=== PATIENT | female | born 2000 | race Caucasian/White ===

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

== ENCOUNTER 2021-08-25 22:31 | Emergency (ER) | payer OTHER ==
[2021-08-25 22:35] VITALS: PULSE 85; TEMP 98.4
[2021-08-25] MEDS ORDERED: MORPHINE SULFATE 4 MG/ML SYRINGE IV STA (23:33)
[2021-08-25] MEDS ORDERED: SODIUM CHLORIDE 0.9% 1,000 ML IV STA (23:33)
[2021-08-25] MEDS ORDERED: ONDANSETRON 4 MG/2 ML VIAL IVP STA (23:33)
--- NOTE | 2021-08-25 23:33 | ED ---
Abdominal Pain HPI - General Chief Complaint: Abdominal Pain Stated Complaint: Abd Pain Time Seen by Provider: 08/25/21 23:26 Source: patient Mode of arrival: ambulatory Limitations: no limitations - History of Present Illness Initial Comments: This is a pleasant 21-year-old female with history of asthma. She presents to emergency department today complaining of pelvic pain which is quite severe. She states she had a little pain last Thursday which seemed to resolve. However today the pain returned. She states that pain is exacerbated by palpation, movement, position, his physical lost her pelvis, mostly in the central area. Pain is 10 out of 10 in intensity. She denies any vaginal discharge. No hematuria. States it does seem to radiate to the back. No headache, no fever or chills, no changes in vision or hearing, no sore throat or difficulty with speech, no neck pain, no chest pain or shortness of breath, no abdominal pain, no nausea or vomiting, no changes in urination or bowel movements, no numbness or tingling, no extremity pain, no skin rashes or lesions. - Related Data Previous Rx's Medication Instructions Recorded ARIPiprazole [Abilify] 2 mg PO DAILY 30 Days #30 tab 10/19/18 Albuterol Nebulized [Ventolin 2.5 mg INHALATION RT-QID PRN nebu 10/19/18 Nebulized] Fluticasone Nasal [place] [Flonase 2 spray EA NOSTRIL DAILY spr 10/19/18 Nasal [place]] Loratadine [Claritin] 10 mg PO DAILY tab 10/19/18 Pramipexole [Mirapex] 0.5 mg PO HS 30 Days #30 tab 10/19/18 Sertraline [Zoloft] 37.5 mg PO 2100 30 Days #45 tab 10/19/18 cloNIDine HCL [Catapres] 0.1 mg PO BID 30 Days #60 tab 10/19/18 lamoTRIgine [LaMICtal] 25 mg PO 2100 30 Days #30 tab 10/19/18 Cephalexin [Keflex] 500 mg PO BID 7 Days #14 cap 03/04/19 Cephalexin [Keflex] 500 mg PO BID 7 Days #14 cap 03/04/19 Acetaminophen [Tylenol] 500 mg PO Q4-6H PRN #24 tab 08/26/21 Naproxen [Naprosyn] 500 mg PO Q12HR #24 tab 08/26/21 Allergies Allergy/AdvReac Type Severity Reaction Status Date / Time Latex, Natural Rubber Allergy Itching Verified 08/25/21 22:35 niacin Allergy Itching Verified 08/25/21 22:35 Review of Systems ROS Statement: Those systems with pertinent positive or pertinent negative responses have been documented in the HPI. ROS Other: All systems not noted in ROS Statement are negative. Past Medical History Past Medical History: Asthma Additional Past Medical History / Comment(s): allergic rhinitis History of Any Multi-Drug Resistant Organisms: None Reported Past Surgical History: Orthopedic Surgery Additional Past Surgical History / Comment(s): surgery to right leg Past Anesthesia/Blood Transfusion Reactions: No Reported Reaction Past Psychological History: Anxiety, Bipolar, Depression, PTSD Smoking Status: Never smoker Past Alcohol Use History: None Reported Past Drug Use History: Marijuana - Past Family History Father Additional Family Medical History / Comment(s): high blood pressure, DM, bipolar disorder Mother Additional Family Medical History / Comment(s): asthma General Exam - General Exam Comments Initial Comments: Healthy-appearing 21-year-old female in significant distress due to pelvic pain. Limitations: no limitations General appearance: alert, in distress Head exam: Present: atraumatic, normocephalic, normal inspection Eye exam: Present: normal appearance, PERRL, EOMI. Absent: scleral icterus, conjunctival injection, periorbital swelling ENT exam: Present: normal exam, mucous membranes moist Neck exam: Present: normal inspection. Absent: tenderness, meningismus, lymphadenopathy Respiratory exam: Present: normal lung sounds bilaterally. Absent: respiratory distress, wheezes, rales, rhonchi, stridor Cardiovascular Exam: Present: regular rate, normal rhythm, normal heart sounds. Absent: systolic murmur, diastolic murmur, rubs, gallop, clicks GI/Abdominal exam: Present: soft, tenderness, normal bowel sounds, other (Significant tenderness is suprapubic and bilateral pelvic area.). Absent: distended, guarding, rebound, rigid Extremities exam: Present: normal inspection, full ROM, normal capillary refill. Absent: tenderness, pedal edema, joint swelling, calf tenderness Back exam: Present: normal inspection Neurological exam: Present: alert, oriented X3, CN II-XII intact Psychiatric exam: Present: normal affect, normal mood Skin exam: Present: warm, dry, intact, normal color. Absent: rash Course Vital Signs 08/25/21 22:32 Temperature 98.4 F Pulse Rate 85 Respiratory 16 Rate Blood Pressure 109/78 O2 Sat by Pulse 99 Oximetry - Reevaluation(s) Reevaluation #1: 08/26/21 01:45 Medical record is reviewed Symptoms are improved here in the emergency department Patient is informed of results and questions answered Patient in no distress Patient pain is improved drastically. Medical Decision Making - Medical Decision Making Given the patient's level of discomfort, ovarian torsion must be considered in the differential. Certainly ovarian cyst or pelvic inflammatory disease is also within the differential. However patient does not appear to be ill or toxic. Vicodin be infectious.. And no definitive flank pain. Less likely to be urinogenital. Does not fit the clinical picture of appendicitis. Ultrasound shows bilateral ovarian cyst. I did discuss all findings with the patient. All questions answered. I did suggest a pelvic examination, however, patient states that she is going to defer this test that she is not concerned about an STD nor does she have any vaginal discharge. Patient does have an upcoming appointment with her community music therapist at [facility]. Return and follow-up as discussed in detail. Patient voiced understanding. Note that this patient refused the pelvic examination. I did advise the pelvic exam and stated there could be other causes for her pain that we could not diagnose without a. Patient states she has an appointment appointment with a community music therapist. Patient deferring the pelvic exam. Patient is improving her own medical decisions. We did discuss risks versus benefits. - Lab Data Result diagrams: 08/26/21 00:05 08/26/21 00:05 Lab Results 08/26/21 08/26/21 08/26/21 Range/Units 00:05 00:05 00:05 WBC 6.9 (3.8-10.6) k/uL RBC 4.35 (3.80-5.40) m/uL Hgb 14.1 (11.4-16.0) gm/dL Hct 42.5 (34.0-46.0) % MCV 97.8 (80.0-100.0) fL MCH 32.4 (25.0-35.0) pg MCHC 33.1 (31.0-37.0) g/dL RDW 12.3 (11.5-15.5) % Plt Count 223 (150-450) k/uL MPV 7.8 Neutrophils % 87 % Lymphocytes % 5 % Monocytes % 4 % Eosinophils % 4 % Basophils % 0 % Neutrophils # 6.0 (1.3-7.7) k/uL Lymphocytes # 0.4 L (1.0-4.8) k/uL Monocytes # 0.2 (0-1.0) k/uL Eosinophils # 0.3 (0-0.7) k/uL Basophils # 0.0 (0-0.2) k/uL Sodium 137 (137-145) mmol/L Potassium 3.7 (3.5-5.1) mmol/L Chloride 106 (98-107) mmol/L Carbon Dioxide 23 (22-30) mmol/L Anion Gap 8 mmol/L BUN 13 (7-17) mg/dL Creatinine 0.74 (0.52-1.04) mg/dL Est GFR (CKD-EPI)AfAm >90 (>60 ml/min/1.73 sqM) Est GFR (CKD-EPI)NonAf >90 (>60 ml/min/1.73 sqM) Glucose 98 (74-99) mg/dL Calcium 9.9 (8.4-10.2) mg/dL Total Bilirubin 1.1 (0.2-1.3) mg/dL AST 22 (14-36) U/L ALT 14 (4-34) U/L Alkaline Phosphatase 28 L (38-126) U/L Total Protein 8.2 (6.3-8.2) g/dL Albumin 4.7 (3.5-5.0) g/dL Urine Color Yellow Urine Appearance Clear (Clear) Urine pH 8.5 H (5.0-8.0) Ur Specific [place] 1.025 (1.001-1.035) Urine Protein 1+ H (Negative) Urine Glucose (UA) Negative (Negative) Urine Ketones Negative (Negative) Urine Blood Negative (Negative) Urine Nitrite Negative (Negative) Urine Bilirubin Negative (Negative) Urine Urobilinogen 3.0 (<2.0) mg/dL Ur Leukocyte Esterase Trace H (Negative) Urine RBC 1 (0-5) /hpf Urine WBC 3 (0-5) /hpf Ur Squamous Epith Cells 2 (0-4) /hpf Urine Mucus Rare H (None) /hpf Urine HCG, Qual (Not Detectd) 08/26/21 Range/Units 00:05 WBC (3.8-10.6) k/uL RBC (3.80-5.40) m/uL Hgb (11.4-16.0) gm/dL Hct (34.0-46.0) % MCV (80.0-100.0) fL MCH (25.0-35.0) pg MCHC (31.0-37.0) g/dL RDW (11.5-15.5) % Plt Count (150-450) k/uL MPV Neutrophils % % Lymphocytes % % Monocytes % % Eosinophils % % Basophils % % Neutrophils # (1.3-7.7) k/uL Lymphocytes # (1.0-4.8) k/uL Monocytes # (0-1.0) k/uL Eosinophils # (0-0.7) k/uL Basophils # (0-0.2) k/uL Sodium (137-145) mmol/L Potassium (3.5-5.1) mmol/L Chloride (98-107) mmol/L Carbon Dioxide (22-30) mmol/L Anion Gap mmol/L BUN (7-17) mg/dL Creatinine (0.52-1.04) mg/dL Est GFR (CKD-EPI)AfAm (>60 ml/min/1.73 sqM) Est GFR (CKD-EPI)NonAf (>60 ml/min/1.73 sqM) Glucose (74-99) mg/dL Calcium (8.4-10.2) mg/dL Total Bilirubin (0.2-1.3) mg/dL AST (14-36) U/L ALT (4-34) U/L Alkaline Phosphatase (38-126) U/L Total Protein (6.3-8.2) g/dL Albumin (3.5-5.0) g/dL Urine Color Urine Appearance (Clear) Urine pH (5.0-8.0) Ur Specific [place] (1.001-1.035) Urine Protein (Negative) Urine Glucose (UA) (Negative) Urine Ketones (Negative) Urine Blood (Negative) Urine Nitrite (Negative) Urine Bilirubin (Negative) Urine Urobilinogen (<2.0) mg/dL Ur Leukocyte Esterase (Negative) Urine RBC (0-5) /hpf Urine WBC (0-5) /hpf Ur Squamous Epith Cells (0-4) /hpf Urine Mucus (None) /hpf Urine HCG, Qual Not Detected (Not Detectd) Disposition Clinical Impression: Ovarian cyst Disposition: HOME SELF-CARE Condition: Good Additional Instructions: Follow-up with your regular physician as directed. Return to the ER immediately if any symptoms worsen, new symptoms arise, or any other problems develop. Follow-up with your own physician or the provided physician as discussed. Make an appointment with a community music therapist as well. Prescriptions: Naproxen [Naprosyn] 500 mg PO Q12HR #24 tab Acetaminophen [Tylenol] 500 mg PO Q4-6H PRN #24 tab PRN Reason: Pain Is patient prescribed a controlled substance at d/c from ED?: No Referrals: Dagoberto Bills MD [STAFF PHYSICIAN] - 1-2 days Time of Disposition: 02:08
[2021-08-26 00:14] LABS: Basophils % (A) 0 %; Eosinophils # (A) 0.3 k/uL (0-0.7); Eosinophils % (A) 4 %; HCT 42.5 % (34.0-46.0); HGB 14.1 gm/dL (11.4-16.0); Lymphocytes # (A) 0.4 k/uL (1.0-4.8); Lymphocytes % (A) 5 %; MCH 32.4 pg (25.0-35.0); MCHC 33.1 g/dL (31.0-37.0); MCV 97.8 fL (80.0-100.0); Mean Platelet Volume 7.8; Monocytes # (A) 0.2 k/uL (0-1.0); Monocytes % (A) 4 %; Neutrophils % (A) 87 %; Platelet Count 223 k/uL (150-450); RBC 4.35 m/uL (3.80-5.40); RDW 12.3 % (11.5-15.5); WBC 6.9 k/uL (3.8-10.6)
[2021-08-26 00:17] LABS: Appearance,Urine Clear (Clear); Bilirubin,Urine Negative (Negative); Blood,Urine Negative (Negative); Color,Urine Yellow; Glucose,Urine (UA) Negative (Negative); Ketones,Urine Negative (Negative); Leukocyte Esterase,Urine Trace (Negative); Mucus,Urine Rare /hpf; Nitrite,Urine Negative (Negative); PH, Urine 8.5 (5.0-8.0); Protein,Urine 1+ (Negative); RBC,Urine 1 /hpf (0-5); Specific Gravity,Urine 1.025 (1.001-1.035); Squamous Epithelial Cell,Urine 2 /hpf (0-4); WBC,Urine 3 /hpf (0-5)
--- NOTE | 2021-08-26 00:46 | XR ---
EXAMINATION TYPE: XR KUB DATE OF EXAM: 08/26/2021 COMPARISON: None HISTORY: Abdominal pain TECHNIQUE: 2 views upright FINDINGS: There is no sign of intestinal obstruction or pneumoperitoneum. Fecal pattern is normal. Th ere is no evidence of a mass. There are no calcifications over the kidneys. There is mild lumbar levo scoliosis. Lung bases are clear. Bony structures in the pelvis appear intact. IMPRESSION: Nonacute abdomen.
--- NOTE | 2021-08-26 00:50 | US ---
EXAMINATION TYPE: US transvaginal DATE OF EXAM: 08/26/2021 COMPARISON: NONE CLINICAL HISTORY: Pelvic pain, rule out ovarian torsion. Patient states having hx of cysts burst. Ge neralized pelvic pain. TECHNIQUE: Transvaginal (TV). Date of LMP: 08/18/2021, [id number] EXAM MEASUREMENTS: Uterus: 6.3 x 2.7 x 3.9 cm Endometrial Stripe: 0.4 cm Right Ovary: 3.0 x 1.9 x 1.8 cm Left Ovary: 2.7 x 1.8 x 1.9 cm 1. Uterus: Anteverted wnl 2. Endometrium: wnl 3. Right Ovary: follicles seen. pedunculated cyst - 1.8 x 1.9 x 1.1 cm 4. Left Ovary: follicles seen Spectral, color and waveform doppler imaging shows good arterial and venous flow within the ovaries ; there is no evidence for ovarian torsion. 5. Bilateral Adnexa: fluid filled loops of bowel seen 6. Posterior cul-de-sac: no free fluid, fluid filled loops of bowel seen IMPRESSION: There are bilateral ovarian cysts. No solid adnexal mass. No evidence of ovarian torsion. Normal uter us and endometrium.
[2021-08-26 01:36] LABS: ALT 14 U/L (4-34); AST 22 U/L (14-36); African American GFR (CKD) >90 (>60 ml/min/1.73 sqM); Albumin 4.7 g/dL (3.5-5.0); Alkaline Phosphatase 28 U/L (38-126); Anion Gap 8 mmol/L; Blood Urea Nitrogen 13 mg/dL (7-17); Calcium 9.9 mg/dL (8.4-10.2); Carbon Dioxide 23 mmol/L (22-30); Chloride 106 mmol/L (98-107); Glucose 98 mg/dL (74-99); Non-African American GFR(CKD) >90 (>60 ml/min/1.73 sqM); Potassium 3.7 mmol/L (3.5-5.1); Sodium 137 mmol/L (137-145); Total Bilirubin 1.1 mg/dL (0.2-1.3); Total Protein 8.2 g/dL (6.3-8.2)
[2021-08-26 02:40] VITALS: BP 109/85; RESP 18
== END 2021-08-26 02:55 | disposition home or self-care (01) ==
LOC: EC 22:31
DX: N83.201 Unspecified ovarian cyst, right side (principal); N83.202 Unspecified ovarian cyst, left side; J45.909 Unspecified asthma, uncomplicated; Z91.040 Latex allergy status; Z88.7 Allergy status to serum and vaccine
CPT/HCPCS: 36415; 80053; 85025; 81001; 81025; 74018; 93975; 76830; 99284; 96374; 96375; 96361; J2270; J2405

== ENCOUNTER 2021-11-11 08:42 | Emergency (ER) | payer OTHER ==
[2021-11-11 08:55] VITALS: RESP 16
[2021-11-11 08:57] VITALS: TEMP 98
--- NOTE | 2021-11-11 09:25 | XR ---
EXAMINATION TYPE: XR finger RT DATE OF EXAM: 11/11/2021 COMPARISON: NONE HISTORY: Injury with pain TECHNIQUE: 3 views right thumb. FINDINGS: No acute fracture or dislocation right thumb. Joint spaces are maintained. No suspicious so ft tissue foreign body noted in the right thumb. IMPRESSION: As above.
--- NOTE | 2021-11-11 09:59 | ED ---
Upper Extremity HPI - General Chief Complaint: Extremity Injury, Upper Stated Complaint: [facility] - extremity injury Time Seen by Provider: 11/11/21 08:50 Source: patient, EMS, RN notes reviewed Mode of arrival: EMS Limitations: no limitations - History of Present Illness Initial Comments: 21-year-old female presents emergency Department with chief complaint of right thumb injury. Patient states she was at work in which she caught her nail underneath the sewing machine patient states that she pulled back causing her nail drip off. Patient states there is some mild bleeding her tetanus is up-to-date last 5 years. She states the pain is throbbing in nature. Patient offers no complaints. - Related Data Home Medications Medication Instructions Recorded Confirmed Albuterol Sulfate [Proair Hfa] 2 puff INHALATION RT-Q4H PRN 11/11/21 11/11/21 Etonogestrel/Ethinyl Estradiol 1 ring VAGINAL Q28D 11/11/21 11/11/21 [Nuvaring Vaginal Ring] Rizatriptan Benzoate [Rizatriptan] 5 mg PO DAILY PRN 11/11/21 11/11/21 Allergies Allergy/AdvReac Type Severity Reaction Status Date / Time Latex, Natural Rubber Allergy Itching Verified 11/11/21 10:35 niacin Allergy Itching Verified 11/11/21 10:35 Review of Systems ROS Statement: Those systems with pertinent positive or pertinent negative responses have been documented in the HPI. ROS Other: All systems not noted in ROS Statement are negative. Past Medical History Past Medical History: Asthma Additional Past Medical History / Comment(s): allergic rhinitis History of Any Multi-Drug Resistant Organisms: None Reported Past Surgical History: Orthopedic Surgery Additional Past Surgical History / Comment(s): surgery to right leg Past Anesthesia/Blood Transfusion Reactions: No Reported Reaction Past Psychological History: Anxiety, Bipolar, Depression, PTSD Smoking Status: Vaper Past Alcohol Use History: Rare Past Drug Use History: Marijuana - Past Family History Father Additional Family Medical History / Comment(s): high blood pressure, DM, bipolar disorder Mother Additional Family Medical History / Comment(s): asthma General Exam Limitations: no limitations General appearance: alert, in no apparent distress Head exam: Present: atraumatic, normocephalic, normal inspection Eye exam: Present: normal appearance, PERRL, EOMI. Absent: scleral icterus, conjunctival injection, periorbital swelling Respiratory exam: Present: normal lung sounds bilaterally. Absent: respiratory distress, wheezes, rales, rhonchi, stridor Cardiovascular Exam: Present: regular rate, normal rhythm, normal heart sounds. Absent: systolic murmur, diastolic murmur, rubs, gallop, clicks Extremities exam: Present: other (Right thumb nail avulsion noted, patient has full range of motion no active bleeding neurovascular intact.) Neurological exam: Present: alert Skin exam: Present: warm, dry, intact, normal color. Absent: rash Course Vital Signs 11/11/21 11/11/21 08:46 08:56 Temperature 98.0 F Pulse Rate 56 L Respiratory 16 Rate Blood Pressure 93/66 O2 Sat by Pulse 98 Oximetry Procedures - Procedures Initial comment: Digital block was performed on the right thumb using 10 mL of lidocaine without epinephrine 1%. Patient tolerated well. Attempted to remove partial nail avulsion patient unable tolerate not willing to complete the procedure. Medical Decision Making - Medical Decision Making Patient has no avulsion on the right tetanus is up-to-date x-rays negative patient discharged stable condition return parameters were discussed. Disposition Clinical Impression: Nail avulsion, finger Disposition: HOME SELF-CARE Condition: Stable Instructions (If sedation given, give patient instructions): Nail Avulsion (ED) Additional Instructions: Please return to the Emergency Department if symptoms worsen or any other concerns. Is patient prescribed a controlled substance at d/c from ED?: No Referrals: Nonstaff,Physician [Primary Care Provider] - 1-2 days Time of Disposition: 09:59
[2021-11-11] MEDS ORDERED: LIDOCAINE 1% INJ 10MG/ML (5 ML VIAL-PF) SQ ONE (10:09)
[2021-11-11 11:18] VITALS: BP 107/75; PULSE 63
== END 2021-11-11 11:15 | disposition home or self-care (01) ==
LOC: EC 08:42
DX: S61.101A Unspecified open wound of right thumb with damage to nail, initial encounter (principal); F17.290 Nicotine dependence, other tobacco product, uncomplicated; J45.909 Unspecified asthma, uncomplicated; Z91.040 Latex allergy status; Z88.8 Allergy status to other drugs, medicaments and biological substances; W31.89XA Contact with other specified machinery, initial encounter
CPT/HCPCS: 73140; 99283; 11730; J2001

== ENCOUNTER 2022-10-05 00:45 | Emergency (ER) | payer OTHER ==
[2022-10-05 00:53] VITALS: TEMP 98.1
[2022-10-05] MEDS ORDERED: DEXAMETHASONE SOD PHOSPHATE 10 MG/ML 1 ML VIAL IM STA (02:07)
--- NOTE | 2022-10-05 02:11 | ED ---
URI HPI - General Chief Complaint: Upper Respiratory Infection Stated Complaint: Asthma Time Seen by Provider: 10/05/22 01:56 Source: patient, RN notes reviewed, old records reviewed Mode of arrival: ambulatory - History of Present Illness Initial Comments: This is a nontoxic-appearing 22-year-old female who presents to the emergency room with nasal congestion, sinus pressure and sore throat since about 11:30 today. Patient states she's used her inhaler multiple times with no relief. Denies any fevers. No nausea vomiting or diarrhea. Does smoke marijuana and vape daily. History of asthma with an albuterol inhaler as needed. MD Complaint: cough, sore throat, nasal congestion, sinus pain -: days(s) (1) Severity scale (1-10): 9 Improves With: nothing - Related Data Home Medications Medication Instructions Recorded Confirmed Albuterol Sulfate [Proair Hfa] 2 puff INHALATION RT-Q4H PRN 11/11/21 11/11/21 Etonogestrel/Ethinyl Estradiol 1 ring VAGINAL Q28D 11/11/21 11/11/21 [Nuvaring Vaginal Ring] Rizatriptan Benzoate [Rizatriptan] 5 mg PO DAILY PRN 11/11/21 11/11/21 Previous Rx's Medication Instructions Recorded Albuterol Inhaler [Ventolin Hfa 1 - 2 puff INHALATION Q6H PRN #1 10/05/22 Inhaler] unit Allergies Allergy/AdvReac Type Severity Reaction Status Date / Time Latex, Natural Rubber Allergy Itching Verified 10/05/22 00:53 niacin Allergy Itching Verified 10/05/22 00:53 Review of Systems ROS Statement: Those systems with pertinent positive or pertinent negative responses have been documented in the HPI. ROS Other: All systems not noted in ROS Statement are negative. Past Medical History Past Medical History: Asthma Additional Past Medical History / Comment(s): allergic rhinitis History of Any Multi-Drug Resistant Organisms: None Reported Past Surgical History: Orthopedic Surgery Additional Past Surgical History / Comment(s): surgery to right leg Past Anesthesia/Blood Transfusion Reactions: No Reported Reaction Past Psychological History: Anxiety, Bipolar, Depression, PTSD Smoking Status: Vaper Past Alcohol Use History: Rare Past Drug Use History: Marijuana - Past Family History Father Additional Family Medical History / Comment(s): high blood pressure, DM, bipolar disorder Mother Additional Family Medical History / Comment(s): asthma General Exam General appearance: alert, in no apparent distress Head exam: Present: atraumatic, normocephalic, normal inspection Eye exam: Present: normal appearance. Absent: scleral icterus, conjunctival injection, periorbital swelling, periorbital tenderness ENT exam: Present: normal oropharynx, mucous membranes moist Expanded Mouth exam: Present: tongue normal, tongue elevation. Absent: drooling, trismus, muffled voice Throat exam: negative: tonsillar erythema, tonsillomegaly, tonsillar exudate, R peritonsillar mass, L peritonsillar mass Neck exam: Present: full ROM. Absent: tenderness, meningismus, lymphadenopathy Expanded Neck exam: Absent: tenderness, midline deformity, anterior neck swelling Respiratory exam: Present: normal lung sounds bilaterally. Absent: respiratory distress, accessory muscle use Cardiovascular Exam: Present: regular rate, normal heart sounds GI/Abdominal exam: Present: soft Extremities exam: Present: full ROM, normal capillary refill. Absent: pedal edema Back exam: Present: normal inspection. Absent: rash noted Neurological exam: Present: alert, oriented X3 Psychiatric exam: Present: normal affect, normal mood Skin exam: Present: warm, dry, normal color. Absent: cyanosis, diaphoretic, p etechiae, pallor Course Vital Signs 10/05/22 10/05/22 00:47 02:54 Temperature 98.1 F 98.1 F Pulse Rate 75 62 Respiratory 20 18 Rate Blood Pressure 132/87 119/78 O2 Sat by Pulse 98 99 Oximetry Medical Decision Making - Medical Decision Making On exam patient's lungs sounds clear to auscultation. She has had nasal congestion with no evidence of respiratory distress or stridor. Oropharynx is nonerythematous, no tonsillar exudate. No fevers. Vital signs are stable. She was given a shot of Decadron due to her complaints of cough with history of asthma . Influenza and coronavirus swabs negative. She was encouraged to increase her fluid intake and take an [id number] decongestant. Follow-up with her primary care doctor next week. Return with any new or concerning symptoms. She was also encouraged to stop smoking. Case discussed with Dr. Levi. Was pt. sent in by a medical professional or institution (Dr., PA, PLANT WRAPPER, urgent care, hospital, or [place] [facility] facility...) When possible be specific @ -No Did you speak to anyone other than the patient for history (EMS, parent, family, police, friend...)? What history was obtained from this source @ -No Did you review nursing and triage notes (agree or disagree)? Why? @ -I reviewed and agree with nursing and triage notes Were old charts reviewed (outside hosp., previous admission, EMS record, old EKG, old radiological studies, urgent care reports/EKG's, [place] health [facility] facility records)? Report findings @ -No old charts were reviewed Differential Diagnosis (chest pain, altered mental status, abdominal pain women, abdominal pain men, vaginal bleeding, weakness, fever, dyspnea, syncope, headache, dizziness, GI bleed, back pain, seizure, CVA, palpatations, mental health, musculoskeletal)? @ -Viral URI, pneumonia, bronchitis, asthma exacerbation EKG interpreted by me (3pts min.). @ -n/a X-rays interpreted by me (1pt min.). @ -None done CT interpreted by me (1pt min.). @ -None done U/S interpreted by me (1pt. min.). @ -None done What testing was considered but not performed or refused? (CT, X-rays, U/S, labs)? Why? @ -None What meds were considered but not given or refused? Why? @ -None Did you discuss the management of the patient with other professionals (professionals i.e. CAREN Palomares, PLANT WRAPPER, lab, RT, psych nurse, high school social science teacher, clothing busheler, teacher, hospital security officer, case finisher)? Give summary @ -No] Was smoking cessation discussed for >3mins.? @ -ES Was critical care preformed (if so, how long)? @ -[No] Were there social determinants of health that impacted care today? How? (Homelessness, low income, unemployed, alcoholism, drug addiction, transportation, low edu. Level, literacy, decrease access to med. care, nursing home, rehab)? @ -[No] Was there de-escalation of care discussed even if they declined (Discuss DNR or withdrawal of care, Hospice)? DNR status @ -[No] What co-morbidities impacted this encounter? (DM, HTN, Smoking, COPD, CAD, Cancer, CVA, ARF, Chemo, Hep., AIDS, mental health diagnosis, sleep apnea, morbid obesity)? @ -Asthma, smoking Was patient admitted / discharged? Hospital course, mention meds given and route, prescriptions, significant lab abnormalities, going to OR and other pertinent info. @ -Discharged Undiagnosed new problem with uncertain prognosis? @ -[No] Drug Therapy requiring intensive monitoring for toxicity (Heparin, Nitro, Insulin, Cardizem)? @ -[No] Were any procedures done? @ -[No] Diagnosis/symptom? @ -URI Acute, or Chronic, or Acute on Chronic? @ -Acute Uncomplicated (without systemic symptoms) or Complicated (systemic symptoms)? @ -Uncomplicated Side effects of treatment? @ -[No] Exacerbation, Progression, or Severe Exacerbation? @ -[No] Poses a threat to life or bodily function? How? (Chest pain, [place], [place], pneumonia, PE, COPD, DKA, ARF, appy, cholecystitis, CVA, Diverticulitis, Homicidal, Suicidal, threat to staff... and all critical care pts) @ -[No] - Lab Data Lab Results 10/05/22 Range/Units 01:01 Influenza Type A (PCR) Not Detected (Not Detectd) Influenza Type B (PCR) Not Detected (Not Detectd) RSV (PCR) Not Detected (Not Detectd) SARS-CoV-2 (PCR) Not Detected (Not Detectd) Disposition Clinical Impression: Acute upper respiratory infection Disposition: HOME SELF-CARE Condition: Good Instructions (If sedation given, give patient instructions): Upper Respiratory Infection (ED) Additional Instructions: Increase your fluid intake. Use her albuterol inhaler as needed. Tylenol or Motrin as needed for any discomfort or fevers. Stop smoking. Prescriptions: Albuterol Inhaler [Ventolin Hfa Inhaler] 1 - 2 puff INHALATION Q6H PRN #1 unit PRN Reason: Wheezing Is patient prescribed a controlled substance at d/c from ED?: No Referrals: Nonstaff,Physician [REFERRING] - 1-2 days Time of Disposition: 02:36
[2022-10-05 02:55] VITALS: BP 119/78; PULSE 62; RESP 18
== END 2022-10-05 02:55 | disposition home or self-care (01) ==
LOC: EC 00:45
DX: J06.9 Acute upper respiratory infection, unspecified (principal); J45.909 Unspecified asthma, uncomplicated; F17.290 Nicotine dependence, other tobacco product, uncomplicated; F12.90 Cannabis use, unspecified, uncomplicated; Z20.822 Contact with and (suspected) exposure to COVID-19; Z79.899 Other long term (current) drug therapy; Z88.3 Allergy status to other anti-infective agents; Z91.040 Latex allergy status
CPT/HCPCS: 87636; 99283; 96372; J1100

== ENCOUNTER 2023-06-30 23:03 | Emergency (ER) | payer OTHER ==
[2023-06-30] MEDS ORDERED: ALPRAZolam 0.5 MG TAB PO STA (23:25)
[2023-06-30] MEDS ORDERED: ALBUTEROL NEBULIZED 2.5 MG/3 ML INHALATION STA (23:42)
--- NOTE | 2023-07-01 00:14 | ED ---
SOB HPI - General Chief Complaint: Shortness of Breath Stated Complaint: Asthma Time Seen by Provider: 06/30/23 23:17 Source: patient Mode of arrival: ambulatory Limitations: no limitations - History of Present Illness Initial Comments: Radha is a 23-year-old female presents the ER today with complaint of asthma attack. Patient reports that she has a history of asthma she is currently out of nebulized albuterol at home, she states that she hasn't had an asthma attack in quite a while but she does korey. He is currently being treated for pain ear infection with viral URI type symptoms, she is on an antibiotic and taking Mucinex. She states that today at work she began feeling like her throat was getting tight and she was wheezing. She used albuterol rescue inhaler 2 times with minimal improvement came to the ER. Patient states she is feeling very anxious about this and does not have any anxiety medicine currently. - Related Data Home Medications Medication Instructions Recorded Confirmed Albuterol Sulfate [Proair Hfa] 2 puff INHALATION RT-Q4H PRN 11/11/21 11/11/21 Etonogestrel/Ethinyl Estradiol 1 ring VAGINAL Q28D 11/11/21 11/11/21 [Nuvaring Vaginal Ring] Rizatriptan Benzoate [Rizatriptan] 5 mg PO DAILY PRN 11/11/21 11/11/21 Previous Rx's Medication Instructions Recorded Albuterol Inhaler [Ventolin Hfa 1 - 2 puff INHALATION Q6H PRN #1 10/05/22 Inhaler] unit Albuterol Nebulized [Ventolin 2.5 mg INHALATION Q4H 8 Days #150 07/01/23 Nebulized] ml predniSONE 40 mg PO DAILY 5 Days #20 tab 07/01/23 Allergies Allergy/AdvReac Type Severity Reaction Status Date / Time Latex, Natural Rubber Allergy Itching Verified 06/30/23 23:10 niacin Allergy Itching Verified 06/30/23 23:10 Review of Systems ROS Statement: Those systems with pertinent positive or pertinent negative responses have been documented in the HPI. ROS Other: All systems not noted in ROS Statement are negative. Past Medical History Past Medical History: Asthma Additional Past Medical History / Comment(s): allergic rhinitis History of Any Multi-Drug Resistant Organisms: None Reported Past Surgical History: Orthopedic Surgery Additional Past Surgical History / Comment(s): surgery to right leg Past Anesthesia/Blood Transfusion Reactions: No Reported Reaction Past Psychological History: Anxiety, Bipolar, Depression, PTSD Smoking Status: Current every day smoker, Vaper Past Alcohol Use History: Rare Past Drug Use History: Marijuana - Past Family History Father Additional Family Medical History / Comment(s): high blood pressure, DM, bipolar disorder Mother Additional Family Medical History / Comment(s): asthma General Exam Limitations: no limitations General appearance: alert, anxious Head exam: Present: atraumatic, normocephalic Eye exam: Present: PERRL ENT exam: Present: normal exam, normal oropharynx, mucous membranes moist Neck exam: Present: normal inspection, full ROM Respiratory exam: Present: wheezes, other (Tachypnea with mild wheezing) Cardiovascular Exam: Present: regular rate GI/Abdominal exam: Present: soft Rectal exam: Present: deferred Neurological exam: Present: alert, oriented X3 Psychiatric exam: Present: anxious Skin exam: Present: warm, dry, intact Course Vital Signs 06/30/23 06/30/23 06/30/23 23:09 23:41 23:56 Temperature 97.9 F Pulse Rate 89 90 Respiratory 26 H 24 Rate Blood Pressure 115/79 O2 Sat by Pulse 100 Oximetry 07/01/23 00:13 Temperature Pulse Rate 92 Respiratory Rate Blood Pressure O2 Sat by Pulse Oximetry Medical Decision Making - Medical Decision Making Was pt. sent in by a medical professional or institution (CAREN Palomares, ACCIDENT INVESTIGATOR, urgent care, hospital, or fdc...) When possible be specific @ -[No] Did you speak to anyone other than the patient for history (EMS, parent, family, police, friend...)? What history was obtained from this source @ -[No] Did you review nursing and triage notes (agree or disagree)? Why? @ -[I reviewed and agree with nursing and triage notes] Were old charts reviewed (outside hosp., previous admission, EMS record, old EKG, old radiological studies, urgent care reports/EKG's, fdc records)? Report findings @ -[No old charts were reviewed] Differential Diagnosis (chest pain, altered mental status, abdominal pain women, abdominal pain men, vaginal bleeding, weakness, fever, dyspnea, syncope, headache, dizziness, GI bleed, back pain, seizure, CVA, palpatations, mental health)? @ -[not applicable] EKG interpreted by me (3pts min.). @ -[As above] X-rays interpreted by me (1pt min.). @ -[None done] CT interpreted by me (1pt min.). @ -[None done] U/S interpreted by me (1pt. min.). @ -[None done] What testing was considered but not performed or refused? (CT, X-rays, U/S, labs)? Why? @ -[None] What meds were considered but not given or refused? Why? @ -[None] Did you discuss the management of the patient with other professionals (professionals i.e. Dr., PA, ACCIDENT INVESTIGATOR, lab, RT, psych nurse, home health care social worker, senior software analyst, teacher, career services officer, case manager specialist)? Give summary @ -[No] Was smoking cessation discussed for >3mins.? @ -[No] Was critical care preformed (if so, how long)? @ -[No] Were there social determinants of health that impacted care today? How? (Homelessness, low income, unemployed, alcoholism, drug addiction, transportation, low edu. Level, literacy, decrease access to med. care, assisted, rehab)? @ -[No] Was there de-escalation of care discussed even if they declined (Discuss DNR or withdrawal of care, Hospice)? DNR status @ -[No] What co-morbidities impacted this encounter? (DM, HTN, Smoking, COPD, CAD, Cancer, CVA, ARF, Chemo, Hep., AIDS, mental health diagnosis, sleep apnea, morbid obesity)? @ -[None] Was patient admitted / discharged? Hospital course, mention meds given and route, prescriptions, significant lab abnormalities, going to OR and other pertinent info. @ -Discharge The patient was seen and evaluated history was obtained from patient, patient with some mild expiratory wheezing and feeling very anxious she was treated with by mouth Xanax and a single nebulized albuterol. I did offer the patient steroids here in the ER however she wants to start them in the morning due to them causing some sleep difficulty. Prescription for nebulizer albuterol and prednisone was provided at discharge patient was discharged home in stable condition. Undiagnosed new problem with uncertain prognosis? @ -[No] Drug Therapy requiring intensive monitoring for toxicity (Heparin, Nitro, Insulin, Cardizem)? @ -[No] Were any procedures done? @ -[No] Diagnosis/symptom? @ -Asthma attack Acute, or Chronic, or Acute on Chronic? @ -Acute Uncomplicated (without systemic symptoms) or Complicated (systemic symptoms)? @ -Unomplicated Side effects of treatment? @ -[No] Exacerbation, Progression, or Severe Exacerbation? @ -[No] Poses a threat to life or bodily function? How? (Chest pain, [place], [place], pneumonia, PE, COPD, DKA, ARF, appy, cholecystitis, CVA, Diverticulitis, Homicidal, Suicidal, threat to staff... and all critical care pts) @ -Yes can progress to respiratory failure and Disposition Clinical Impression: Asthma attack, Acute anxiety Disposition: HOME SELF-CARE Condition: Stable Instructions (If sedation given, give patient instructions): Asthma (ED) Prescriptions: predniSONE 40 mg PO DAILY 5 Days #20 tab Albuterol Nebulized [Ventolin Nebulized] 2.5 mg INHALATION Q4H 8 Days #150 ml Is patient prescribed a controlled substance at d/c from ED?: No Referrals: Magaly Upton DO [Primary Care Provider] - 1-2 days
[2023-07-01 00:57] VITALS: BP 107/73; PULSE 101; RESP 19; TEMP 98.7
[2023-07-01] MEDS ORDERED: ALBUTEROL NEBULIZED 2.5 MG/3 ML INHALATION SCH (08:00)
== END 2023-07-01 00:42 | disposition home or self-care (01) ==
LOC: EC 23:03
DX: F41.9 Anxiety disorder, unspecified (principal); J45.909 Unspecified asthma, uncomplicated; F17.290 Nicotine dependence, other tobacco product, uncomplicated; F12.90 Cannabis use, unspecified, uncomplicated; Z86.59 Personal history of other mental and behavioral disorders; Z91.040 Latex allergy status; Z88.8 Allergy status to other drugs, medicaments and biological substances
CPT/HCPCS: 94640; 99284

== ENCOUNTER 2024-07-04 15:02 | Emergency (ER) | payer OTHER ==
[2024-07-04 15:10] VITALS: RESP 18
--- NOTE | 2024-07-04 16:01 | ED ---
General Adult HPI - General Chief complaint: Shortness of Breath Stated complaint: [place] Time Seen by Provider: 07/04/24 16:00 Source: patient Mode of arrival: ambulatory Limitations: no limitations - History of Present Illness Initial comments: 24-year-old female presented chief complaint of shortness of breath. History of asthma she is a current vapor. States that she has had a cough and congestion. She also admits to nausea. Patient is very anxious while obtaining the quick note.. No chest pain. No vomiting. No sore throat. No fever, she admits to chills. She admits to body aches. - Related Data Home Medications Medication Instructions Recorded Confirmed Albuterol Sulfate [Proair Hfa] 2 puff INHALATION RT-Q4H PRN 11/11/21 11/11/21 Etonogestrel/Ethinyl Estradiol 1 ring VAGINAL Q28D 11/11/21 11/11/21 [Nuvaring Vaginal Ring] Rizatriptan Benzoate [Rizatriptan] 5 mg PO DAILY PRN 11/11/21 11/11/21 Previous Rx's Medication Instructions Recorded Albuterol Inhaler [Ventolin Hfa 1 - 2 puff INHALATION Q6H PRN #1 10/05/22 Inhaler] unit Albuterol Nebulized [Ventolin 2.5 mg INHALATION Q4H 8 Days #150 07/01/23 Nebulized] ml predniSONE 40 mg PO DAILY 5 Days #20 tab 07/01/23 Oseltamivir [Tamiflu] 75 mg PO Q12HR 5 Days #10 cap 07/04/24 Allergies Allergy/AdvReac Type Severity Reaction Status Date / Time Latex, Natural Rubber Allergy Itching Verified 07/04/24 15:10 niacin Allergy Itching Verified 07/04/24 15:10 Review of Systems ROS Statement: Those systems with pertinent positive or pertinent negative responses have been documented in the HPI. ROS Other: All systems not noted in ROS Statement are negative. Past Medical History Past Medical History: Asthma Additional Past Medical History / Comment(s): allergic rhinitis History of Any Multi-Drug Resistant Organisms: None Reported Past Surgical History: Orthopedic Surgery Additional Past Surgical History / Comment(s): surgery to right leg Past Anesthesia/Blood Transfusion Reactions: No Reported Reaction Past Psychological History: Anxiety, Bipolar, Depression, PTSD Smoking Status: Current every day smoker, Vaper Past Alcohol Use History: Rare Past Drug Use History: Marijuana - Past Family History Father Additional Family Medical History / Comment(s): high blood pressure, DM, bipolar disorder Mother Additional Family Medical History / Comment(s): asthma General Exam - General Exam Comments Initial Comments: Visual Physical Exam Vital signs reviewed General: Well-appearing, nontoxic, patient is tearful and anxious Head: Normocephalic, atraumatic Eyes: PERRLA, EOMI ENT: Airway patent Chest: Nonlabored breathing Skin: No visual rash, normal skin tone Neuro: Alert and oriented 3 Musculoskeletal: No gross abnormalities Limitations: no limitations General appearance: alert, in no apparent distress Head exam: Present: atraumatic, normocephalic, normal inspection Eye exam: Present: normal appearance, EOMI ENT exam: Present: normal exam, normal oropharynx, mucous membranes moist Neck exam: Present: normal inspection. Absent: meningismus Respiratory exam: Present: normal lung sounds bilaterally. Absent: respiratory distress, wheezes, rales, rhonchi, stridor Cardiovascular Exam: Present: regular rate, normal rhythm, normal heart sounds. Absent: systolic murmur, diastolic murmur, rubs, gallop, clicks Neurological exam: Present: alert, oriented X3 Psychiatric exam: Present: normal affect, normal mood Skin exam: Present: warm, dry Course Vital Signs 07/04/24 07/04/24 07/04/24 15:08 17:12 17:16 Temperature 99.5 F 98.4 F Pulse Rate 73 70 Respiratory 18 18 18 Rate Blood Pressure 127/78 O2 Sat by Pulse 96 96 Oximetry 07/04/24 18:38 Temperature 98.2 F Pulse Rate 72 Respiratory 18 Rate Blood Pressure 130/74 O2 Sat by Pulse 96 Oximetry Medical Decision Making - Medical Decision Making I performed the quick note portion of this visit, electronically signed Sophie Evans PA-C Was pt. sent in by a medical professional or institution (CAREN Palomares, INSTRUMENTATION AND CONTROL TECHNICIAN, urgent care, hospital, or fdc...) When possible be specific @ -No Did you speak to anyone other than the patient for history (EMS, parent, family, police, friend...)? What history was obtained from this source @ -No Did you review nursing and triage notes (agree or disagree)? Why? @ -I reviewed and agree with nursing and triage notes Were old charts reviewed (outside hosp., previous admission, EMS record, old EKG, old radiological studies, urgent care reports/EKG's, fdc records)? Report findings @ -No old charts were reviewed Differential Diagnosis (chest pain, altered mental status, abdominal pain women, abdominal pain men, vaginal bleeding, weakness, fever, dyspnea, syncope, headache, dizziness, GI bleed, back pain, seizure, CVA, palpatations, mental health, musculoskeletal)? @ -MDM Differential Dyspnea: Coronary syndrome, arrhythmia, tamponade, asthma, COPD, pulmonary embolism, pneumonia, pneumothorax, pulmonary effusion, anaphylaxis, diabetic ketoacidosis, flailed chest, pulmonary contusion, diaphragmatic rupture, anemia, neuromuscular this is not meant to be an all-inclusive list. EKG interpreted by me (3pts min.). @ -As above X-rays interpreted by me (1pt min.). @ -Chest x-ray showed no significant abnormality. No acute cardiopulmonary disease CT interpreted by me (1pt min.). @ -None done U/S interpreted by me (1pt. min.). @ -None done What testing was considered but not performed or refused? (CT, X-rays, U/S, labs)? Why? @ -None What meds were considered but not given or refused? Why? @ -None Did you discuss the management of the patient with other professionals (professionals i.e. , PA, INSTRUMENTATION AND CONTROL TECHNICIAN, lab, RT, psych nurse, social work assistant, distributor advertising material, teacher, science and operations officer, correctional casework specialist)? Give summary @ -No Was smoking cessation discussed for >3mins.? @ -No Was critical care preformed (if so, how long)? @ -No Were there social determinants of health that impacted care today? How? (Homelessness, low income, unemployed, alcoholism, drug addiction, transportation, low edu. Level, literacy, decrease access to med. care, group home, rehab)? @ -No Was there de-escalation of care discussed even if they declined (Discuss DNR or withdrawal of care, Hospice)? DNR status @ -No What co-morbidities impacted this encounter? (DM, HTN, Smoking, COPD, CAD, Cancer, CVA, ARF, Chemo, Hep., AIDS, mental health diagnosis, sleep apnea, morbid obesity)? @ -None Was patient admitted / discharged? Hospital course, mention meds given and route, prescriptions, significant lab abnormalities, going to OR and other pertinent info. @ -24-year-old female presenting with chief complaint of difficulty breathing. She also admits to cough and congestion. History of asthma and current vapor. Initially evaluated the patient as a quick note and resumed her care when she was brought back to an exam room. In the exam room the patient is lying back in the bed having absolutely no difficulty breathing. She is resting comfortably. Heart and lungs are clear to auscultation. Vital signs are stable. Chest x- ray shows no acute process. She is positive for influenza A. Patient is educated on today's findings. She will be started on Tamiflu. Follow-up with PCP. Report back to ER with any new or worsening symptoms. Discussed return parameters and answered all questions. Patient conveyed verbal understanding and agreed to the plan. I discussed this case in detail with my attending Dr. Levi Undiagnosed new problem with uncertain prognosis? @ -No Drug Therapy requiring intensive monitoring for toxicity (Heparin, Nitro, Insulin, Cardizem)? @ -No Were any procedures done? @ -No Diagnosis/symptom? @ -Influenza Acute, or Chronic, or Acute on Chronic? @ -Acute Uncomplicated (without systemic symptoms) or Complicated (systemic symptoms)? @ -Uncomplicated Side effects of treatment? @ -No Exacerbation, Progression, or Severe Exacerbation? @ -No Poses a threat to life or bodily function? How? (Chest pain, [place], [place], pneumonia, PE, COPD, DKA, ARF, appy, cholecystitis, CVA, Diverticulitis, Homicidal, Suicidal, threat to staff... and all critical care pts) @ -Unlikely - Lab Data Lab Results 07/04/24 Range/Units 16:45 Influenza Type A (PCR) Detected A (Not Detectd) Influenza Type B (PCR) Not Detected (Not Detectd) RSV (PCR) Not Detected (Not Detectd) SARS-CoV-2 (PCR) Not Detected (Not Detectd) Disposition Clinical Impression: Influenza A Disposition: HOME SELF-CARE Condition: Good Instructions (If sedation given, give patient instructions): Influenza (ED) Additional Instructions: Follow-up with PCP. Report back to ER with any new or worsening symptoms. Prescriptions: Oseltamivir [Tamiflu] 75 mg PO Q12HR 5 Days #10 cap Is patient prescribed a controlled substance at d/c from ED?: No Referrals: Magaly Upton DO [Primary Care Provider] - 1-2 days Time of Disposition: 18:08
--- NOTE | 2024-07-04 16:32 | XR ---
Chest, 2 view. HISTORY: Cough. COMPARISON: TECHNIQUE: PA and lateral views the chest are obtained. FINDINGS: The lungs are clear and there is no consolidative or interstitial opacity. There is no pleural effusion or pneumothorax. The heart, pulmonary vasculature, mediastinum and sindy appear normal. The osseous structures are intact. IMPRESSION: No significant abnormality seen. No acute cardiopulmonary disease. [facility], Workstation: [facility], 07/04/2024 4:30 PM
[2024-07-04 18:40] VITALS: BP 130/74; PULSE 72; TEMP 98.2
== END 2024-07-04 18:39 | disposition home or self-care (01) ==
LOC: EC 15:02
DX: J10.1 Influenza due to other identified influenza virus with other respiratory manifestations (principal); F17.290 Nicotine dependence, other tobacco product, uncomplicated; Z91.040 Latex allergy status; Z88.8 Allergy status to other drugs, medicaments and biological substances
CPT/HCPCS: 71046; 87636; 99285